=== PATIENT | male | born 1970 | race Caucasian/White ===

== ENCOUNTER 2024-01-13 12:21 | Emergency (ER) | payer SELFPAY ==
[~2024-01-13] VITALS: Ht 172.7 cm; Wt 74.8 kg
[2024-01-13 12:25] VITALS: BP 118/79; PULSE 90; RESP 22; TEMP 97.8; O2SAT 99
[2024-01-13 13:12] LABS: BASOPHILS % (AUTO) 0.2 % (0.0-2.0); EOSINOPHILS # (AUTO) 0.2 K/uL (0-0.4); EOSINOPHILS % (AUTO) 1.8 % (0.0-4.0); HEMATOCRIT 43.9 % (36-52); HEMOGLOBIN 14.7 g/dL (12.0-18.0); LYMPHOCYTES # (AUTO) 1.4 K/uL (2.0-11.5); LYMPHOCYTES % (AUTO) 12.2 % (20.5-51.1); MEAN CORPUSCULAR HEMOGLOBIN 30 pg (27-31); MEAN CORPUSCULAR HGB CONC 33 g/dL (33-37); MEAN CORPUSCULAR VOLUME 89.5 fL (80-94); MONOCYTES # (AUTO) 1.1 K/uL (0.8-1.0); MONOCYTES % (AUTO) 9.6 % (1.7-9.3); NEUTROPHILS # (AUTO) 8.8 K/uL (1.8-7.7); PLATELET COUNT (AUTO) 237 K/uL (140-450); RED BLOOD CELL COUNT(AUTO) 4.91 MIL/uL (4.20-6.10); RED CELL DISTRIBUTION WIDTH 12.9 % (11.6-13.7); WHITE BLOOD COUNT (AUTO) 11.5 K/uL (4.8-10.8)
[2024-01-13 13:19] LABS: APPEARANCE,URINE CLEAR (CLEAR); BILIRUBIN,URINE 1+ (NEGATIVE); BLOOD, URINE TRACE-I (NEGATIVE); COLOR,URINE YELLOW (YELLOW); LEUKOCYTE ESTERASE ,URINE NEGATIVE (NEGATIVE); NITRITE, URINE NEGATIVE (NEGATIVE); PROTEIN,URINE 1+ (NEGATIVE); UGLUCOSE NEGATIVE (NEGATIVE)
[2024-01-13 13:26] LABS: ANION GAP 13.7 (8-16); CALCIUM 8.9 mg/dL (8.5-10.1); CARBON DIOXIDE 25.7 mmol/L (21-32); CREATININE 1.1 mg/dL (0.6-1.3); POTASSIUM 3.4 mmol/L (3.5-5.1)
[2024-01-13 13:27] LABS: ALBUMIN 3.2 g/dL (3.4-5.0); BILIRUBIN,DIRECT 0.3 mg/dL (0.0-0.3); TOTAL BILIRUBIN 0.9 mg/dL (0.0-1.0); TOTAL PROTEIN, SERUM 7.9 g/dL (6.4-8.2)
[2024-01-13 13:35] LABS: NEUTROPHILS % (AUTO) 76.2 % (42.2-75.2)
[2024-01-13 13:42] LABS: ICTOTEST NEGATIVE (NEGATIVE)
[2024-01-13 13:43] LABS: BACTERIA,URINE 1+ /HPF (None Seen); CALCIUM OXALATE CRYSTALS,UR 0-10 /HPF (None Seen); MUCUS,URINE 3+ /LPF (None Seen); SQUAMOUS EPITHELIAL CELL,UR 4-10 (MOD) /LPF (0-3 (FEW))
[2024-01-13] MEDS ORDERED: CIPR500T4 PO (14:29)
[2024-01-13 14:30] VITALS: BP 103/72; PULSE 68; RESP 19; TEMP 97.8; O2SAT 97
== END 2024-01-13 14:57 | disposition home or self-care (01) ==
LOC: MED 12:21
DX: K80.50 Calculus of bile duct without cholangitis or cholecystitis without obstruction (principal); N39.0 Urinary tract infection, site not specified; Z79.2 Long term (current) use of antibiotics
CPT/HCPCS: 36415; 76705; 80048; 80076; 81001; 83690; 85025; 87086; 99284; Q0092